=== PATIENT | female | born 1955 | race Two or more races ===

== ENCOUNTER 2019-09-22 16:36 | Emergency (ER) | payer OTHER ==
[~2019-09-22] VITALS: Ht 162.6 cm; Wt 68.0 kg
[2019-09-22 16:37] VITALS: BP 172/94
[2019-09-22 19:11] LABS: CHLORIDE 100 mEq/L (98-107)
[2019-09-22 19:31] LABS: BASOPHILS % 0.6 % (0.0-2.0); EOSINOPHILS % 2.5 % (0.0-5.0); HEMATOCRIT. 41.4 % (36.0-48.0); HEMOGLOBIN. 14.5 g/dL (12.0-16.0); LYMPHOCYTES % 42.8 % (20.0-50.0); MEAN CORPUSCULAR HEMOGLOBIN 31.8 pg (28.0-32.0); MEAN CORPUSCULAR VOLUME 90.7 fL (81.0-99.0); MEAN PLATELET VOLUME 8.6 fl (7.4-10.4); MONOCYTES % 8.1 % (2.0-8.0); PLATELET 256 x1000/uL (130-400); RED BLOOD CELL COUNT 4.56 mill/uL (4.2-5.4); RED CELL DISTRIBUTION WIDTH 15.2 % (11.6-14.6)
[2019-09-22 20:44] LABS: CLARITY URINE CLEAR (CLEAR); COLOR URINE YELLOW (YELLOW); KETONES URINE NEGATIVE (NEGATIVE); LEUKOCYTE ESTERASE URINE NEGATIVE (NEGATIVE); NITRITE URINE NEGATIVE (NEGATIVE); OCCULT BLOOD URINE NEGATIVE (NEGATIVE); PH URINE 7.5 (4.5-8.0); PROTEIN URINE NEGATIVE (NEGATIVE); SPECIFIC GRAVITY URINE 1.007 (1.005-1.030); UROBILINOGEN URINE 0.2 E.U./dL (0.2-1.0)
== END 2019-09-22 21:43 | disposition home or self-care (01) ==
LOC: ER 16:36
DX: R51 Headache (principal); I10 Essential (primary) hypertension; E78.00 Pure hypercholesterolemia, unspecified
CPT/HCPCS: 36415; 71045; 80053; 81003; 84484; 85025; 93005; 99285

== ENCOUNTER → 2020-04-25 | Outpatient (CLI) | payer MEDICARE, MEDICAID ==
[~2020-04-25] MED LIST: CARV6.2548 PO; FAMO40TA7 PO; GABA-531 PO; LOSA100T32 PO; PRED1TAB PO
== END | disposition home or self-care (01) ==
LOC: LAB 05:12
PROVIDERS: ATTEND Neurological Surgery
DX: Z01.812 Encounter for preprocedural laboratory examination (principal); Z20.828 Contact with and (suspected) exposure to other viral communicable diseases
CPT/HCPCS: 87426

== ENCOUNTER 2020-10-17 07:53 | Inpatient (IN) | payer MEDICARE, OTHER ==
[~2020-10-17] VITALS: Ht 154.9 cm; Wt 73.5 kg
[~2020-10-17 07:53] MED LIST changes: +ATOR20TA PO; -GABA-531 PO; +GABA-532 PO; +KEPP500 MT; +VALA500T PO
[2020-10-17] MEDS ORDERED: GENTAMICIN SULF 40MG/ML 2ML VIAL ONE (08:28)
[2020-10-17] MEDS ORDERED: THROMBIN (BOVINE) 5000 UNITS/VIAL TOP ONE (08:29)
[2020-10-17] MEDS: LACTATED RINGERS 1,000 ML IV SCH ×2 (09:00→17:52)
[2020-10-17] MEDS ORDERED: PROPOFOL 200MG/20ML VIAL IV ONE (09:23)
[2020-10-17] MEDS ORDERED: VECURONIUM BROMIDE 10 MG/VIAL IV ONE (09:23)
[2020-10-17] MEDS ORDERED: PHENYLEPHRINE HCL 10 MG/ML 1ML (IV VIAL) IV ONE (09:26)
[2020-10-17] MEDS ORDERED: ACETAMINOPHEN 500MG TABLET ONE (09:26)
[2020-10-17] MEDS ORDERED: STERILE WATER FOR INJECTION 10ML VIAL ONE (09:26)
[2020-10-17] MEDS ORDERED: ONDANSETRON HCL 4MG/2ML INJ ONE (09:27)
[2020-10-17] MEDS ORDERED: METOCLOPRAMIDE HCL 10MG/2ML VIAL ONE (09:27)
[2020-10-17] MEDS ORDERED: CEFAZOLIN SODIUM 1000MG/VIAL ONE (09:29)
[2020-10-17] MEDS ORDERED: SODIUM CHLORIDE 0.9% 10ML VIAL ONE (09:29)
[2020-10-17] MEDS ORDERED: MAGNESIUM 2 G PREMIX 50 ML IV NR (09:30)
[2020-10-17] MEDS ORDERED: OMEP40CA12 PO (09:56)
[2020-10-17] MEDS ORDERED: HYDRALAZINE 20MG/ML VIAL IV PRN (10:00)
[2020-10-17] MEDS ORDERED: HYDROCODONE/ACETAMINOPHEN 5/325MG TABLET PO PRN (10:00)
[2020-10-17] MEDS ORDERED: HYDROMORPHONE HCL/PF 2MG/ML (OR) ONE (10:10)
[2020-10-17] MEDS ORDERED: DEXAMETHASONE 4MG/ML 1ML VIAL ONE (10:36)
[2020-10-17] MEDS ORDERED: ATOR10TA69 PO (10:48)
[2020-10-17] MEDS ORDERED: HYDRALAZINE 20MG/ML VIAL ONE (11:00)
[2020-10-17] MEDS ORDERED: EPHEDRINE SULFATE 50MG/ML VIAL ONE (11:09)
[2020-10-17] MEDS ORDERED: NEOSTIGMINE METHYLSULFATE 1MG/ML 10 ML VIAL ONE (11:15)
[2020-10-17] MEDS ORDERED: GLYCOPYRROLATE 0.2 MG/ML 2ML VIAL ONE (11:15)
[2020-10-17] MEDS: HYDROMORPHONE HCL/PF 2MG/ML CPJ IV PRN ×2 (13:43→13:59)
[2020-10-17] MEDS ORDERED: CEFAZOLIN SODIUM 1000MG/VIAL IV SCH (14:00)
[2020-10-17] MEDS: DEXT 5%/LACTATED RINGERS 1,000 ML IV SCH ×2 (17:53→21:00)
[2020-10-17 20:00] VITALS: BP 91/46
[2020-10-17] MEDS: CEFAZOLIN 1000MG PREMIX 50 ML IV SCH (20:22)
[2020-10-17 20:47] VITALS: BP 91/46
[2020-10-17] MEDS ORDERED: ATORVASTATIN CALCIUM 10MG TABLET PO SCH (21:00)
[2020-10-17] MEDS: CARVEDILOL 6.25 MG TABLET PO SCH (21:00)
[2020-10-18] VITALS: BP 101/53
[2020-10-18 04:00] VITALS: BP 125/65
[2020-10-18] MEDS: CEFAZOLIN 1000MG PREMIX 50 ML IV SCH ×2 (04:17→11:42)
[2020-10-18] MEDS: MORPHINE SULFATE 4 MG/ML CPJ (NOT FOR IM USE) IV PRN ×2 (05:00→14:49)
[2020-10-18] MEDS: DEXT 5%/LACTATED RINGERS 1,000 ML IV SCH ×2 (06:03→17:25)
[2020-10-18 08:00] VITALS: BP 111/57
[2020-10-18] MEDS: FAMOTIDINE 20MG TABLET PO SCH (08:28)
[2020-10-18 08:31] LABS: BASOPHILS % 0.3 % (0.0-2.0); EOSINOPHILS % 0.1 % (0.0-5.0); HEMATOCRIT. 35.7 % (36.0-48.0); HEMOGLOBIN. 12.3 g/dL (12.0-16.0); LYMPHOCYTES % 16.7 % (20.0-50.0); MEAN CORPUSCULAR HEMOGLOBIN 31.4 pg (28.0-32.0); MEAN PLATELET VOLUME 8.8 fl (7.4-10.4); MONOCYTES % 8.7 % (2.0-8.0); NEUTROPHILS % 74.2 % (40.0-76.0); PLATELET 225 x1000/uL (130-400); RED BLOOD CELL COUNT 3.93 mill/uL (4.2-5.4); RED CELL DISTRIBUTION WIDTH 14.7 % (11.6-14.6)
[2020-10-18] MEDS: CARVEDILOL 6.25 MG TABLET PO SCH ×2 (08:31→21:16)
[2020-10-18] MEDS: LOSARTAN POTASSIUM 100 MG TABLET PO SCH (08:32)
[2020-10-18 09:06] LABS: CHLORIDE 109 mEq/L (98-107)
[2020-10-18 09:15] LABS: PHOSPHORUS 2.2 mg/dL (2.5-4.9)
[2020-10-18 09:17] LABS: LDL CHOLESTEROL 115 mg/dL (5-100)
[2020-10-18 09:20] LABS: HDL CHOLESTEROL 92 mg/dL (40-59)
[2020-10-18 12:00] VITALS: BP 130/66
[2020-10-18] MEDS ORDERED: HYDRALAZINE 5 MG in SODIUM CHLORIDE 0.9% 49.75 ML IV PRN (13:00)
[2020-10-18] MEDS ORDERED: POTASSIUM PHOS,M-BASIC-D-BASIC 10 MMOL in DEXT 5% WATER 246.6667 ML IV SCH (14:00)
[2020-10-18 16:45] VITALS: BP 135/70
[2020-10-18 20:00] VITALS: BP 148/86
[2020-10-18] MEDS ORDERED: ATORVASTATIN CALCIUM 40MG TABLET PO SCH (21:00)
[2020-10-19] VITALS: BP 129/61
[2020-10-19] MEDS: DEXT 5%/LACTATED RINGERS 1,000 ML IV SCH (02:39)
[2020-10-19 04:00] VITALS: BP 141/78
[2020-10-19 08:00] VITALS: BP_SYST 118; BP_SYST 134; BP_SYST 146; BP_DIAS 57; BP_DIAS 70; BP_DIAS 82
[2020-10-19 08:09] LABS: T4 FREE 1.15 ng/dL (0.76-1.46)
[2020-10-19] MEDS: FAMOTIDINE 20MG TABLET PO SCH (09:00)
[2020-10-19] MEDS: LOSARTAN POTASSIUM 100 MG TABLET PO SCH (09:33)
[2020-10-19] MEDS: CARVEDILOL 6.25 MG TABLET PO SCH (09:33)
[2020-10-19 12:00] VITALS: BP 134/73
[2020-10-19] MEDS ORDERED: HYDRALAZINE 5 MG in SODIUM CHLORIDE 0.9% 49.75 ML IV PRN (12:30)
[2020-10-19 15:46] VITALS: BP 135/73
== END 2020-10-19 16:22 | disposition home health service (06) | DRG 320 ==
LOC: OR 07:53 → 6EST 18:37
PROVIDERS: ADMIT Internal Medicine; ATTEND Neurological Surgery
PROC: 01NB0ZZ Release Lumbar Nerve, Open Approach (ICD-10-PCS; principal; 2020-10-17)
PROC: 01NR0ZZ Release Sacral Nerve, Open Approach (ICD-10-PCS; 2020-10-17)
DX: M48.07 Spinal stenosis, lumbosacral region (principal); G82.20 Paraplegia, unspecified; G62.9 Polyneuropathy, unspecified; M54.16 Radiculopathy, lumbar region; I10 Essential (primary) hypertension; E78.5 Hyperlipidemia, unspecified; M48.061 Spinal stenosis, lumbar region without neurogenic claudication; Z86.011 Personal history of benign neoplasm of the brain; R26.2 Difficulty in walking, not elsewhere classified; Z86.69 Personal history of other diseases of the nervous system and sense organs; R00.1 Bradycardia, unspecified
CPT/HCPCS: 36415; 72100; 76000; 80053; 80061; 83036; 83735; 84100; 84439; 84443; 84481; 85025; 86850; 86900; 88311; 97116; 97163; 97530; A4216; J0360; J0690; J1100; J1170; J1580; J2270; J2370; J2405; J2704; J2710; J2765; J3475; J3490; J7060; J7121